=== PATIENT | female | born 1970 | race African-American/Black ===

== ENCOUNTER 2017-09-30 08:51 | Inpatient (IN) | payer MEDICAID ==
[2017-09-30] MEDS ORDERED: Sodium Chloride 0.9% 10 ML Syringe FLUSH PRN (09:18)
[2017-09-30] MEDS ORDERED: Sodium Chloride 0.9% 2.5 ML Syringe FLUSH PRN (09:18)
--- NOTE | 2017-09-30 09:19 | EDM.PDOC ---
ED HPI GENERAL MEDICAL PROBLEM - General Chief Complaint: Respiratory Problem Stated Complaint: COUGH,ABDOMINAL PAIN Time Seen by Provider: 09/30/17 09:10 Source of Information: Reports: Patient History Limitations: Reports: No Limitations - History of Present Illness INITIAL COMMENTS - FREE TEXT/NARRATIVE: History of present illness: []Patient has been coughing for one week with lengths of chest pain and feeling dizzy. She had a fever that subsided 3 days ago continues to have the chest pain and cough. Any leg swelling or history of cardiac disease. She arrived to the ED hypertensive 180s/130s states she does have hypertension but is untreated. Time she saw a physician was in [place] in 2016 and does not take any regular medicines. Review of systems: As per history of present illness and below otherwise all systems reviewed and negative. Past medical history: As per history of present illness and as reviewed below otherwise noncontributory. Surgical history: As per history of present illness and as reviewed below otherwise noncontributory. Social history: No reported history of drug or alcohol abuse. Family history: As per history of present illness and as reviewed below otherwise noncontributory. Physical exam: General: Well developed, well nourished in NAD HEENT: Atraumatic, normocephalic, pupils reactive, negative for conjunctival pallor or scleral icterus, mucous membranes moist, throat clear, neck supple, nontender, trachea midline. Lungs: Clear to auscultation, breath sounds equal bilaterally, chest nontender. Heart: S1S2, regular, negative for clicks, rubs, or JVD. Abdomen: Soft, nondistended, nontender. Negative for masses or hepatosplenomegaly. Negative for costovertebral tenderness. Pelvis: Stable nontender. Genitourinary: Deferred. Rectal: Deferred. Extremities: Atraumatic, negative for cords or calf pain. Neurovascular unremarkable. Neuro: Awake, alert, oriented. Cranial nerves II through XII unremarkable. Cerebellum unremarkable. Motor and sensory unremarkable throughout. Exam nonfocal. Diagnostics: []EKG shows left bundle-branch no acute ischemia, chest x-ray shows congestion, curly B-lines, CBC is normal, chemistries show elevated creatinine 1.2, BNP elevated at 984, LFTs show elevated alkaline phosphatase and bilirubin with mild elevation in AST and elevated ALT. Ultrasound gallbladder ordered showing that the gallbladder has been removed (patient denied having gallbladder surgery ) common bile duct is 5 mm. Therapeutics: []Patient was given aspirin and metoprolol while in the ED with improvement of blood pressure, however patient remains symptomatic with dizziness Impression: []CHF, uncontrolled hypertension, Plan: []Consulted Dr. De Luna for admission he accepts patient for telemetry observation Definitive disposition and diagnosis as appropriate pending reevaluation and review of above. Mid-Anterior Chest Pain Score (Numeric/FACES): 10 - Related Data Allergies Allergy/AdvReac Type Severity Reaction Status Date / Time No Known Allergies Allergy Verified 09/30/17 09:08 Home Meds: Home Meds . [No Known Home Meds] 09/30/17 [History] ED ROS GENERAL - Review of Systems Review Of Systems: See Below (See history of present illness) ED EXAM, GENERAL - Physical Exam Exam: See Below (See history of present illness) Course - Vital Signs Last Recorded V/S: Last Vital Signs Temp 97.9 F 09/30/17 09:03 Pulse 84 09/30/17 11:34 Resp 20 09/30/17 11:34 BP 148/108 H 09/30/17 12:17 Pulse Ox 95 09/30/17 11:34 - Orders/Labs/Meds Orders: Active Orders 24 hr Category Date Time Status EKG Documentation Completion [RC] STAT Care 09/30/17 09:17 Active Sodium Chloride 0.9% [Saline Flush] Med 09/30/17 09:18 Active 10 ml FLUSH ASDIRECTED PRN Sodium Chloride 0.9% [Saline Flush] Med 09/30/17 09:18 Active 2.5 ml FLUSH ASDIRECTED PRN Saline Lock Insert [OM.PC] Stat Oth 09/30/17 09:17 Ordered Medication Orders Docusate Sodium (Colace) 100 mg PO DAILY [facility] Last Admin: 09/30/17 12:19 Dose: 100 mg Enoxaparin Sodium (Lovenox) 40 mg SUBCUT Q24H PREM Last Admin: 09/30/17 12:19 Dose: 40 mg Morphine Sulfate (Morphine) 2 mg IVPUSH Q4H PRN PRN Reason: Pain Nitroglycerin (Nitrostat) 0.4 mg SL Q5M PRN PRN Reason: Chest Pain Last Admin: 09/30/17 12:17 Dose: 0.4 mg Ondansetron HCl (Zofran) 4 mg IVPUSH Q4H PRN PRN Reason: Nausea Pantoprazole Sodium (Protonix Iv) 40 mg IVPUSH Q24H PREM Sodium Chloride (Saline Flush) 10 ml FLUSH ASDIRECTED PRN PRN Reason: Keep Vein Open Sodium Chloride (Saline Flush) 2.5 ml FLUSH ASDIRECTED PRN PRN Reason: Keep Vein Open Labs: Laboratory Tests 09/30/17 09/30/17 09/30/17 Range/Units 09:35 09:35 09:35 WBC 7.63 (4.0-11.0) K/uL RBC 4.90 (4.30-5.90) M/uL Hgb 14.7 (12.0-16.0) g/dL Hct 43.5 (36.0-46.0) % MCV 88.8 (80.0-98.0) fL MCH 30.0 (27.0-32.0) pg MCHC 33.8 (31.0-37.0) g/dL RDW Std Deviation 46.7 (28.0-62.0) fl RDW Coeff of Anu 15 (11.0-15.0) % Plt Count 346 (150-400) K/uL MPV 10.10 (7.40-12.00) fL Neut % (Auto) 46.8 L (48.0-80.0) % Lymph % (Auto) 47.8 H (16.0-40.0) % [place] % (Auto) 4.3 (0.0-15.0) % Eos % (Auto) 0.8 (0.0-7.0) % Baso % (Auto) 0.3 (0.0-1.5) % Neut # (Auto) 3.6 (1.4-5.7) K/uL Lymph # (Auto) 3.7 H (0.6-2.4) K/uL [place] # (Auto) 0.3 (0.0-0.8) K/uL Eos # (Auto) 0.1 (0.0-0.7) K/uL Baso # (Auto) 0.0 (0.0-0.1) K/uL Nucleated RBC % 0.0 /100WBC Nucleated RBCs # 0 K/uL Sodium 142 (136-145) mmol/L Potassium 3.7 (3.5-5.1) mmol/L Chloride 107 (98-107) mmol/L Carbon Dioxide 22.3 (21.0-32.0) mmol/L BUN 18 (7.0-18.0) mg/dL Creatinine 1.2 H (0.6-1.0) mg/dL Est Cr Clr Drug Dosing 54.25 mL/min Estimated GFR (MDRD) 58.4 ml/min Glucose 134 H (74-106) mg/dL Calcium 9.3 (8.5-10.1) mg/dL Total Bilirubin 2.1 H (0.2-1.0) mg/dL AST 49 H (15-37) U/L ALT 124 H (14-63) U/L Alkaline Phosphatase 167 H (46-116) U/L Troponin I < 0.050 (0.000-0.056) ng/mL B-Natriuretic Peptide 984 H (<100) PG/ML Total Protein 7.9 (6.4-8.2) g/dL Albumin 3.6 (3.4-5.0) g/dL Globulin 4.3 H (2.0-3.5) g/dL Albumin/Globulin Ratio 0.8 L (1.3-2.8) Amylase (25-115) U/L Lipase (73-393) U/L 09/30/17 Range/Units 09:35 WBC (4.0-11.0) K/uL RBC (4.30-5.90) M/uL Hgb (12.0-16.0) g/dL Hct (36.0-46.0) % MCV (80.0-98.0) fL MCH (27.0-32.0) pg MCHC (31.0-37.0) g/dL RDW Std Deviation (28.0-62.0) fl RDW Coeff of Anu (11.0-15.0) % Plt Count (150-400) K/uL MPV (7.40-12.00) fL Neut % (Auto) (48.0-80.0) % Lymph % (Auto) (16.0-40.0) % [place] % (Auto) (0.0-15.0) % Eos % (Auto) (0.0-7.0) % Baso % (Auto) (0.0-1.5) % Neut # (Auto) (1.4-5.7) K/uL Lymph # (Auto) (0.6-2.4) K/uL [place] # (Auto) (0.0-0.8) K/uL Eos # (Auto) (0.0-0.7) K/uL Baso # (Auto) (0.0-0.1) K/uL Nucleated RBC % /100WBC Nucleated RBCs # K/uL Sodium (136-145) mmol/L Potassium (3.5-5.1) mmol/L Chloride (98-107) mmol/L Carbon Dioxide (21.0-32.0) mmol/L BUN (7.0-18.0) mg/dL Creatinine (0.6-1.0) mg/dL Est Cr Clr Drug Dosing mL/min Estimated GFR (MDRD) ml/min Glucose (74-106) mg/dL Calcium (8.5-10.1) mg/dL Total Bilirubin (0.2-1.0) mg/dL AST (15-37) U/L ALT (14-63) U/L Alkaline Phosphatase (46-116) U/L Troponin I (0.000-0.056) ng/mL B-Natriuretic Peptide (<100) PG/ML Total Protein (6.4-8.2) g/dL Albumin (3.4-5.0) g/dL Globulin (2.0-3.5) g/dL Albumin/Globulin Ratio (1.3-2.8) Amylase 38 (25-115) U/L Lipase 82 (73-393) U/L Meds: Medications Generic Name Dose Route Start Last Admin Trade Name Freq PRN Reason Stop Dose Admin Docusate Sodium 100 mg 09/30/17 12:00 09/30/17 12:19 Colace PO 100 mg DAILY PREM Administration Enoxaparin Sodium 40 mg 09/30/17 12:00 09/30/17 12:19 Lovenox SUBCUT 40 mg Q24H PREM Administration Morphine Sulfate 2 mg 09/30/17 12:23 Morphine IVPUSH Q4H PRN Pain Nitroglycerin 0.4 mg 09/30/17 12:07 09/30/17 12:17 Nitrostat SL 0.4 mg Q5M PRN Administration Chest Pain Ondansetron HCl 4 mg 09/30/17 11:53 Zofran IVPUSH Q4H PRN Nausea Pantoprazole Sodium 40 mg 09/30/17 12:30 Protonix Iv IVPUSH Q24H PREM Sodium Chloride 10 ml 09/30/17 09:18 Saline Flush FLUSH ASDIRECTED PRN Keep Vein Open Sodium Chloride 2.5 ml 09/30/17 09:18 Saline Flush FLUSH ASDIRECTED PRN Keep Vein Open Discontinued Medications Generic Name Dose Route Start Last Admin Trade Name Freq PRN Reason Stop Dose Admin Aspirin 324 mg 09/30/17 10:57 09/30/17 11:01 Aspirin PO 09/30/17 10:58 324 mg ONETIME ONE Administration Furosemide 40 mg 09/30/17 11:58 09/30/17 12:19 Lasix IVPUSH 09/30/17 11:59 40 mg NOW ONE Administration Metoprolol Tartrate 5 mg 09/30/17 09:30 09/30/17 10:19 Lopressor IVPUSH 09/30/17 09:41 5 mg Q5M PREM Administration Departure - Departure Time of Disposition: 12:32 Disposition: Admitted As Inpatient 66 Condition: Fair Clinical Impression: Uncontrolled hypertension, Elevated liver function tests Congestive heart failure Qualifiers: Heart failure type: unspecified Heart failure chronicity: unspecified Qualified Code(s): I50.9 - Heart failure, unspecified - Discharge Information - My Orders Last 24 Hours: My Active Orders 09/30/17 09:17 EKG Documentation Completion [RC] STAT Saline Lock Insert [OM.PC] Stat 09/30/17 09:18 Sodium Chloride 0.9% [Saline Flush] 10 ml FLUSH ASDIRECTED PRN Sodium Chloride 0.9% [Saline Flush] 2.5 ml FLUSH ASDIRECTED PRN - Assessment/Plan Last 24 Hours: My Active Orders 09/30/17 09:17 EKG Documentation Completion [RC] STAT Saline Lock Insert [OM.PC] Stat 09/30/17 09:18 Sodium Chloride 0.9% [Saline Flush] 10 ml FLUSH ASDIRECTED PRN Sodium Chloride 0.9% [Saline Flush] 2.5 ml FLUSH ASDIRECTED PRN
[2017-09-30] MEDS: Metoprolol Tartrate 5 MG/5 ML SDV IVPUSH SCH ×3 (09:27→10:19)
[2017-09-30 10:18] LABS: CHLORIDE,CL 107 mmol/L (98-107); SODIUM,NA 142 mmol/L (136-145)
--- NOTE | 2017-09-30 10:23 | CR ---
EXAMINATION: Two-view chest (PA and Lateral views). HISTORY: Shortness of breath. FINDINGS: The trachea is midline. The cardiomediastinal silhouette is within normal limits. The heart is enlarg ed. Mild bibasilar interstitial prominence and atelectasis. Possible curly B lines within the right l suellen base. No pleural effusion or pneumothorax. Osseous structures appear unremarkable. IMPRESSION: Mild cardiomegaly with possible curly B lines which may suggest pulmonary edema.
[2017-09-30] MEDS ORDERED: Aspirin 81 MG Tab.Chew PO ONE (10:57)
--- NOTE | 2017-09-30 11:51 | US ---
EXAMINATION: Right upper quadrant ultrasound HISTORY: Elevated alkaline phosphatase COMPARISON: None TECHNIQUE: Grayscale and color Doppler imaging obtained of the right upper quadrant. FINDINGS: The visualized pancreas appears normal. The liver is normal in contour and echotexture with out a focal hepatic mass. The gallbladder is visualized likely status post cholecystectomy. The right kidney measures at least 12.7 cm [id number] without evidence of hydronephrosis. Common bile duct m easures 5 mm. Small right pleural effusion. IMPRESSION: 1. No acute findings within the right upper quadrant. 2. Small right pleural effusion noted, not well characterized on the chest radiograph.
[2017-09-30] MEDS ORDERED: Ondansetron 4 MG/2 ML SDV IVPUSH PRN (11:53)
[2017-09-30] MEDS ORDERED: Furosemide 40 MG/4 ML VIAL IVPUSH ONE ×3 (11:58→18:00)
[2017-09-30] MEDS ORDERED: Nitroglycerin 0.4 MG Tab.SL SL PRN (12:07)
--- NOTE | 2017-09-30 12:07 | PCM.HP ---
H&P History of Present Illness - General Date of Service: 09/30/17 Admit Problem/Dx: Admission Diagnosis/Problem Admission Diagnosis/Problem Congestive heart failure Source of Information: Patient History Limitations: Reports: No Limitations - History of Present Illness Initial Comments - Free Text/Narative: This 47 year old female with pmh of HTN and dyslipidemia, which she is noncomplaint with medications, presented to the ED today with concerns of feeling left sided chest pain and dizziness. She reports this has been going on for about 1 week and felt she should be evaluated since it was not going away. She reports hot flashes and fevers, but no documented fever at home. No cough, palpitations or URI symptoms. She reports some nausea with epigastric pain and bloating, she reports history of GERD, but hasn't been taking Nexium in a long time. She reports no BM since Thursday. Abdomen feels full of gas, she is passing gas. No black or bloody BMs. She reports lying flat but then having to breath heavier and sit up. No noticeable weight loss or gain, "my weight fluctuates". She reports history of smoking, quit 2 weeks ago, no alcohol use and no recreational drug use. No heavy Tylenol use. In the ED, WBC 7,630, BUN 18, Cr 1.2, glucose 134, bilirubin 2.1, AST 49, ALT 124, and alkphose 167. amylase 38 and lipase 82. BNP 984 and troponin negative. EKG revealed LBBB, rate 90s. CXR revealed mild cardiomegaly with possible curly B lines. RUQ US revealed no acute finding within RUQ, cholecystectomy, small R pleural effusion not clearly characterized on CXR. She was noted to have elevated BP on arrival 180/130s. 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 She was also given ASA 324 mg. She will be admitted for suspected CHF, chest pain and uncontrolled HTN/HTN urgency. She reports she has not seen a Dr since she was in [place] in 2016 and has not been taking her medications for a "long time". Mid-Anterior Chest Pain Score (Numeric/FACES): 10 - Related Data Allergies/Adverse Reactions: Allergies Allergy/AdvReac Type Severity Reaction Status Date / Time No Known Allergies Allergy Verified 03/07/18 09:08 Home Medications: Home Meds . [No Known Home Meds] 09/30/17 [History] Past Medical History Cardiovascular History: Reports: High Cholesterol, Hypertension. Denies: Afib, Blood Clots/VTE/DVT, Heart Failure, CO, Stents Respiratory History: Reports: None. Denies: Asthma, COPD, PE Gastrointestinal History: Reports: Cholelithiasis, GERD. Denies: GI Bleed [employer] History: Reports: Musculoskeletal History: Reports: None Neurological History: Reports: None. Denies: CVA, TIA Endocrine/Metabolic History: Reports: Obesity/BMI 30+. Denies: Diabetes, Type II - Past Surgical History GI Surgical History: Reports: Cholecystectomy Female Surgical History: Reports: Hysterectomy, Other (See Below) Other Female Surgeries/Procedures: ovarian cyst Social & Family History - Family History Cardiac: Reports: High Cholesterol, Hypertension - Tobacco Use Smoking Status *Q: Former Smoker Years of Tobacco use: 25 Packs/Tins Daily: 2 Used Tobacco, but Quit: Yes Month Tobacco Last Used: 08/2017 - Caffeine Use Caffeine Use: Reports: Coffee - Alcohol Use Alcohol Use History: No - Recreational Drug Use Recreational Drug Use: No H&P Review of Systems - Review of Systems: Review Of Systems: See Below General: Reports: Fever (a few days ago, but no temp actually checked. ). Denies: Fatigue HEENT: Reports: Vertigo. Denies: Headaches, Sinus Congestion, Sore Throat Pulmonary: Reports: Shortness of Breath. Denies: Wheezing, Cough, Sputum Cardiovascular: Reports: Chest Pain, Dyspnea on Exertion, Lightheadedness. Denies: Palpitations, Edema, Syncope Gastrointestinal: Reports: Abdominal Pain (epigastric), Constipation, Flatus, Nausea. Denies: Black Stool, Bloody Stool, Vomiting Genitourinary: Reports: No Symptoms. Denies: Dysuria, Frequency, Burning, Pain Musculoskeletal: Reports: No Symptoms. Denies: Neck Pain Psychiatric: Reports: No Symptoms. Denies: Confusion Neurological: Reports: No Symptoms. Denies: Confusion Hematologic/Lymphatic: Reports: No Symptoms Immunologic: Reports: No Symptoms Exam - Exam Exam: See Below - Vital Signs Vital Signs: Last Vital Signs Temp 97.9 F 09/30/17 09:03 Pulse 84 09/30/17 11:34 Resp 20 09/30/17 11:34 BP 148/111 H 03/07/18 11:34 Pulse Ox 95 09/30/17 11:34 Weight: 87.6 kg - Exam General: Alert, Oriented, Cooperative, Other (apperas slightly over dramatic at times. ) HEENT: Conjunctiva Clear, Mucosa Moist & [place], Posterior Pharynx Clear, Pupils Equal Neck: Supple, Trachea Midline. No: JVD Lungs: Clear to Auscultation, Normal Respiratory Effort Cardiovascular: Regular Rate, Regular Rhythm, Normal S1, Normal S2 GI/Abdominal Exam: Normal Bowel Sounds, Soft, No Organomegaly, No Distention, No Abnormal Bruit, No Mass, Pelvis Stable, Tender (epigastric region) Back Exam: Normal Inspection, Full Range of Motion, NT Extremities: Normal Inspection, Normal Range of Motion, Non-Tender, No Pedal Edema, Normal Capillary Refill Neuro Extensive - Mental Status: Alert, Oriented x3, Normal Mood/Affect, Normal Cognition Neuro Extensive - Motor, Sensory, Reflexes: CN II-XII Intact Psychiatric: Alert, Normal Affect, Normal Mood - Patient Data Result Diagrams: 09/30/17 09:35 09/30/17 09:35 EKG INTERPRETATION EKG Date: 09/30/17 Rhythm: NSR P-Wave: Present QRS: LBBB ST-T: Normal QT: Normal Comparison: NA - No Prior EKG *Q Meaningful Use (ADM) - VTE *Q VTE Criteria *Q: - Stroke *Q Stroke Criteria *Q: - AMI *Q AMI Criteria *Q: - Problem List (1) Chest pain SNOMED Code(s): 52559816 ICD Code: R07.9 - CHEST PAIN, UNSPECIFIED Status: Acute Current Visit: Yes (2) Congestive heart failure SNOMED Code(s): 14582734 ICD Code: I50.9 - HEART FAILURE, UNSPECIFIED Status: Suspected Current Visit: Yes Qualifiers: Heart failure type: unspecified Heart failure chronicity: acute Qualified Code(s): I50.9 - Heart failure, unspecified (3) Hyperlipidemia SNOMED Code(s): 41109553 ICD Code: E78.5 - HYPERLIPIDEMIA, UNSPECIFIED Status: Chronic Current Visit: Yes Qualifiers: Hyperlipidemia type: unspecified Qualified Code(s): E78.5 - Hyperlipidemia , unspecified (4) Non compliance w medication regimen SNOMED Code(s): 657241514 ICD Code: Z91.14 - PATIENT'S OTHER NONCOMPLIANCE WITH MEDICATION REGIMEN Status: Acute Current Visit: Yes (5) Elevated liver function tests SNOMED Code(s): 494596921 ICD Code: R79.89 - OTHER SPECIFIED ABNORMAL FINDINGS OF BLOOD CHEMISTRY Status: Acute Current Visit: Yes (6) Uncontrolled hypertension SNOMED Code(s): 77347257 ICD Code: I10 - ESSENTIAL (PRIMARY) HYPERTENSION Status: Chronic Current Visit: Yes Problem List Initiated/Reviewed/Updated: Yes Orders Last 24hrs: Active Orders 24 hr Category Date Time Status Patient Status [ADT] Routine ADT 09/30/17 11:53 Active Height and Weight [RC] DAILY Care 09/30/17 11:53 Active Intake and Output Strict [RC] Q12H Care 09/30/17 16:00 Ordered Oxygen Therapy [RC] PRN Care 09/30/17 11:53 Active Up ad [place] [RC] ASDIRECTED Care 09/30/17 11:53 Active VTE/DVT Education [RC] PER UNIT ROUTINE Care 09/30/17 11:53 Active Vital Signs [RC] Q4H Care 09/30/17 11:53 Active Heart Healthy Diet [DIET] Diet 09/30/17 Lunch Active Echo 2D wo Cont [US] Urgent Exams 09/30/17 11:53 Ordered CBC WITH AUTO DIFF [HEME] AM Lab 10/01/17 05:11 Ordered CBC WITH AUTO DIFF [HEME] AM Lab 10/02/17 05:11 Ordered CBC WITH AUTO DIFF [HEME] AM Lab 10/03/17 05:11 Ordered COMPREHENSIVE METABOLIC PN,CMP [CHEM] AM Lab 10/01/17 05:11 Ordered COMPREHENSIVE METABOLIC PN,CMP [CHEM] AM Lab 10/02/17 05:11 Ordered COMPREHENSIVE METABOLIC PN,CMP [CHEM] AM Lab 10/03/17 05:11 Ordered HEPATITIS PANEL, ACUTE [REF] Routine Lab 09/30/17 12:04 Ordered MAGNESIUM [CHEM] AM Lab 10/01/17 05:11 Ordered MAGNESIUM [CHEM] AM Lab 10/02/17 05:11 Ordered MAGNESIUM [CHEM] AM Lab 10/03/17 05:11 Ordered Docusate Sodium [Colace] Med 09/30/17 12:00 Active 100 mg PO DAILY Enoxaparin [Lovenox] Med 09/30/17 12:00 Active 40 mg SUBCUT Q24H Ondansetron [Zofran] Med 09/30/17 11:53 Active 4 mg IVPUSH Q4H PRN Resuscitation Status Routine Resus Stat 09/30/17 11:53 Ordered Medication Orders Docusate Sodium (Colace) 100 mg PO DAILY PREM Enoxaparin Sodium (Lovenox) 40 mg SUBCUT Q24H PREM Ondansetron HCl (Zofran) 4 mg IVPUSH Q4H PRN PRN Reason: Nausea Sodium Chloride (Saline Flush) 10 ml FLUSH ASDIRECTED PRN PRN Reason: Keep Vein Open Sodium Chloride (Saline Flush) 2.5 ml FLUSH ASDIRECTED PRN PRN Reason: Keep Vein Open Assessment/Plan Comment:: This 47 year old female admitted with suspected CHF, uncontrolled HTN, and chest pain 1. suspected CHF: Patient denies history of CHF. Will obtain ECHO to further evaluate LV EF. Will administer Lasix and monitor strict I/O and daily weights. LBBB noted on EKG, unsure if ths is new or old. Will consult Dr Shore, cardiology Spoke with Dr Fu after he visited with patient, will give another dose of Lasix this evening. Along with starting Lisinopril 2.5 mg now and Aldactone 12.5 mg. 2. Chest pain: Monitor on telemetry. Trend troponins. check A1c and lipid panel. Given Nitro SL x1 on Med/surg with some relief. Pain with palpation mid sternum. May be GERD. will also give some Protonix IV. 3. HTN: Uncontrolled. HTN urgency. Monitor with Lasix. Start Lisinopril 2.5 mg this evening. 4. Elevated LFTs: denies history of. Has hx of gallstones with cholecystectomy, but no problems since. RUQ US negative. Common bile duct 5 mm. Will monitor. Hepatitis panel pending. VTE prophylaxis: Lovenox. Dispo: 2-3 days pending improvement and workup
[2017-09-30] MEDS: Docusate Sodium 100 MG Cap PO SCH (12:19)
[2017-09-30] MEDS: Enoxaparin 40 MG/0.4 ML Syringe SUBCUT SCH (12:19)
[2017-09-30] MEDS: Pantoprazole 40 MG Vial IVPUSH SCH (12:40)
[2017-09-30] MEDS: Morphine 2 MG/ML Syringe IVPUSH PRN (14:19)
[2017-09-30] MEDS ORDERED: Bisacodyl 10 MG Supp RECTAL PRN (16:28)
[2017-09-30] MEDS: Lisinopril 5 MG Tab PO SCH (16:50)
[2017-09-30] MEDS: Spironolactone 25 MG Tab PO SCH (16:51)
[2017-10-01] MEDS ORDERED: Potassium Chloride 20 MEQ Tab.ER PO ONE (08:00)
[2017-10-01] MEDS ORDERED: Magnesium Sulfate/Water 4 GM in Premix Bag 1 BAG IV ONE (08:00)
--- NOTE | 2017-10-01 08:03 | PCM.PN ---
- General Info Date of Service: 10/01/17 Admission Dx/Problem (Free Text): Admission Diagnosis/Problem Admission Diagnosis/Problem Congestive heart failure Subjective Update: Feeling much better this morning. No further chest pain or cough. Reports she is nearly back to normal feeling again. Took a shower this morning. Dyspnea is better as well. No further abdominal pain. Functional Status: Reports: Pain Controlled, Tolerating Diet, Ambulating, Urinating - Review of Systems HEENT: Reports: No Symptoms. Denies: Headaches, Sore Throat, Visual Changes Pulmonary: Reports: No Symptoms. Denies: Shortness of Breath, Cough Cardiovascular: Reports: Dyspnea on Exertion (intermittent, but much improved. ) . Denies: Chest Pain, Palpitations, Edema Gastrointestinal: Reports: No Symptoms. Denies: Abdominal Pain, Nausea, Vomiting Genitourinary: Reports: No Symptoms. Denies: Dysuria, Frequency, Burning, Pain Musculoskeletal: Reports: No Symptoms Neurological: Reports: No Symptoms. Denies: Confusion Psychiatric: Reports: No Symptoms. Denies: Confusion - Patient Data Vitals - Most Recent: Last Vital Signs Temp 98.2 F 10/01/17 07:27 Pulse 86 10/01/17 07:27 Resp 16 10/01/17 07:27 BP 144/92 H 10/01/17 07:27 Pulse Ox 94 L 10/01/17 07:27 Weight - Most Recent: 88 kg I&O - Last 24 Hours: Intake & Output 09/30/17 10/01/17 10/01/17 22:59 06:59 14:59 Intake Total 250 600 Output Total 800 2200 Balance -550 -1600 Lab Results Last 24 Hours: Laboratory Results - last 24 hr 09/30/17 09/30/17 10/01/17 Range/Units 16:14 21:29 04:53 WBC 7.22 (4.0-11.0) K/uL RBC 4.58 (4.30-5.90) M/uL Hgb 13.8 (12.0-16.0) g/dL Hct 40.7 (36.0-46.0) % MCV 88.9 (80.0-98.0) fL MCH 30.1 (27.0-32.0) pg MCHC 33.9 (31.0-37.0) g/dL RDW Std Deviation 46.4 (28.0-62.0) fl RDW Coeff of Anu 15 (11.0-15.0) % Plt Count 321 (150-400) K/uL MPV 10.20 (7.40-12.00) fL Neut % (Auto) 44.6 L (48.0-80.0) % Lymph % (Auto) 48.2 H (16.0-40.0) % Gilchrist % (Auto) 6.0 (0.0-15.0) % Eos % (Auto) 1.1 (0.0-7.0) % Baso % (Auto) 0.1 (0.0-1.5) % Neut # (Auto) 3.2 (1.4-5.7) K/uL Lymph # (Auto) 3.5 H (0.6-2.4) K/uL Gilchrist # (Auto) 0.4 (0.0-0.8) K/uL Eos # (Auto) 0.1 (0.0-0.7) K/uL Baso # (Auto) 0.0 (0.0-0.1) K/uL Nucleated RBC % 0.0 /100WBC Nucleated RBCs # 0 K/uL Sodium (136-145) mmol/L Potassium (3.5-5.1) mmol/L Chloride (98-107) mmol/L Carbon Dioxide (21.0-32.0) mmol/L BUN (7.0-18.0) mg/dL Creatinine (0.6-1.0) mg/dL Est Cr Clr Drug Dosing mL/min Estimated GFR (MDRD) ml/min Glucose (74-106) mg/dL Hemoglobin A1c (4.5-6.2) % Calcium (8.5-10.1) mg/dL Magnesium (1.5-2.0) mg/dL Total Bilirubin (0.2-1.0) mg/dL AST (15-37) IU/L ALT (14-63) IU/L Alkaline Phosphatase (46-116) U/L Troponin I < 0.050 < 0.050 (0.000-0.056) ng/mL Total Protein (6.4-8.2) g/dL Albumin (3.4-5.0) g/dL Globulin (2.0-3.5) g/dL Albumin/Globulin Ratio (1.3-2.8) Triglycerides (0-200) mg/dL Cholesterol (50-200) mg/dL LDL Cholesterol, Calc (60-180) mg/dL VLDL Cholesterol (5-55) mg/dL HDL Cholesterol (40-60) mg/dL Cholesterol/HDL Ratio (3.3-6.0) 10/01/17 10/01/17 Range/Units 04:53 04:53 WBC (4.0-11.0) K/uL RBC (4.30-5.90) M/uL Hgb (12.0-16.0) g/dL Hct (36.0-46.0) % MCV (80.0-98.0) fL MCH (27.0-32.0) pg MCHC (31.0-37.0) g/dL RDW Std Deviation (28.0-62.0) fl RDW Coeff of Anu (11.0-15.0) % Plt Count (150-400) K/uL MPV (7.40-12.00) fL Neut % (Auto) (48.0-80.0) % Lymph % (Auto) (16.0-40.0) % Gilchrist % (Auto) (0.0-15.0) % Eos % (Auto) (0.0-7.0) % Baso % (Auto) (0.0-1.5) % Neut # (Auto) (1.4-5.7) K/uL Lymph # (Auto) (0.6-2.4) K/uL Gilchrist # (Auto) (0.0-0.8) K/uL Eos # (Auto) (0.0-0.7) K/uL Baso # (Auto) (0.0-0.1) K/uL Nucleated RBC % /100WBC Nucleated RBCs # K/uL Sodium 144 (136-145) mmol/L Potassium 3.3 L (3.5-5.1) mmol/L Chloride 106 (98-107) mmol/L Carbon Dioxide 28.0 (21.0-32.0) mmol/L BUN 20 H (7.0-18.0) mg/dL Creatinine 1.2 H (0.6-1.0) mg/dL Est Cr Clr Drug Dosing 55.31 mL/min Estimated GFR (MDRD) 58.4 ml/min Glucose 84 (74-106) mg/dL Hemoglobin A1c 5.9 (4.5-6.2) % Calcium 8.9 (8.5-10.1) mg/dL Magnesium 1.3 L (1.5-2.0) mg/dL Total Bilirubin 1.8 H (0.2-1.0) mg/dL AST 29 (15-37) IU/L ALT 92 H (14-63) IU/L Alkaline Phosphatase 143 H (46-116) U/L Troponin I (0.000-0.056) ng/mL Total Protein 6.7 (6.4-8.2) g/dL Albumin 3.2 L (3.4-5.0) g/dL Globulin 3.5 (2.0-3.5) g/dL Albumin/Globulin Ratio 0.9 L (1.3-2.8) Triglycerides 120 (0-200) mg/dL Cholesterol 164 (50-200) mg/dL LDL Cholesterol, Calc 122 (60-180) mg/dL VLDL Cholesterol 24 (5-55) mg/dL HDL Cholesterol 18 L (40-60) mg/dL Cholesterol/HDL Ratio 9.1 H (3.3-6.0) Reynaldo Results Last 24 Hours: Microbiology 09/30/17 12:30 Influenza Type A Antigen Screen - Final Nasopharyngeal Swab NEGATIVE INFLUENZA A VIRUS AG Influenza Type B Antigen Screen - Final NEGATIVE INFLUENZA B VIRUS AG Med Orders - Current: Current Medications Aspirin (Aspirin) 81 mg PO DAILY [facility] Bisacodyl (Dulcolax) 10 mg RECTAL DAILY PRN PRN Reason: Constipation Last Admin: 09/30/17 16:57 Dose: 10 mg Docusate Sodium (Colace) 100 mg PO DAILY [facility] Last Admin: 09/30/17 12:19 Dose: 100 mg Enoxaparin Sodium (Lovenox) 40 mg SUBCUT Q24H [facility] Last Admin: 09/30/17 12:19 Dose: 40 mg Magnesium Sulfate 4 gm/ Premix 100 mls @ 50 mls/hr IV ONETIME ONE Stop: 10/01/17 09:59 Lisinopril (Prinivil) 2.5 mg PO DAILY [facility] Last Admin: 09/30/17 16:50 Dose: 2.5 mg Morphine Sulfate (Morphine) 2 mg IVPUSH Q4H PRN PRN Reason: Pain Last Admin: 09/30/17 14:19 Dose: 2 mg Nitroglycerin (Nitrostat) 0.4 mg SL Q5M PRN PRN Reason: Chest Pain Last Admin: 09/30/17 12:17 Dose: 0.4 mg Ondansetron HCl (Zofran) 4 mg IVPUSH Q4H PRN PRN Reason: Nausea Pantoprazole Sodium (Protonix Iv) 40 mg IVPUSH Q24H [facility] Last Admin: 09/30/17 12:40 Dose: 40 mg Potassium Chloride (Klor-Con M20) 40 meq PO ONETIME ONE Stop: 10/01/17 08:01 Sodium Chloride (Saline Flush) 10 ml FLUSH ASDIRECTED PRN PRN Reason: Keep Vein Open Sodium Chloride (Saline Flush) 2.5 ml FLUSH ASDIRECTED PRN PRN Reason: Keep Vein Open Spironolactone (Aldactone) 12.5 mg PO DAILY [facility] Last Admin: 09/30/17 16:51 Dose: 12.5 mg Discontinued Medications Aspirin (Aspirin) 324 mg PO ONETIME ONE Stop: 09/30/17 10:58 Last Admin: 09/30/17 11:01 Dose: 324 mg Furosemide (Lasix) 40 mg IVPUSH NOW ONE Stop: 09/30/17 11:59 Last Admin: 09/30/17 12:19 Dose: 40 mg Furosemide (Lasix) 40 mg IVPUSH NOW ONE Stop: 09/30/17 16:28 Last Admin: 09/30/17 16:52 Dose: Not Given Furosemide (Lasix) 40 mg IVPUSH NOW ONE Stop: 09/30/17 18:01 Last Admin: 09/30/17 17:41 Dose: 40 mg Metoprolol Tartrate (Lopressor) 5 mg IVPUSH Q5M [facility] Stop: 09/30/17 09:41 Last Admin: 09/30/17 10:19 Dose: 5 mg - Exam General: Alert, Oriented, Cooperative, No Acute Distress Neck: Supple Lungs: Clear to Auscultation, Normal Respiratory Effort Cardiovascular: Regular Rate, Regular Rhythm GI/Abdominal Exam: Normal Bowel Sounds, Soft, Non-Tender, No Organomegaly, No Distention, No Abnormal Bruit, No Mass, Pelvis Stable Back Exam: Normal Inspection, Full Range of Motion Extremities: Normal Inspection, Normal Range of Motion, Non-Tender, No Pedal Edema, Normal Capillary Refill Neurological: No New Focal Deficit Psy/Mental Status: Alert, Normal Affect, Normal Mood - Problem List & Annotations (1) Chest pain SNOMED Code(s): 60071360 Code(s): R07.9 - CHEST PAIN, UNSPECIFIED Status: Acute Current Visit: Yes (2) Congestive heart failure SNOMED Code(s): 27566306 Code(s): I50.9 - HEART FAILURE, UNSPECIFIED Status: Suspected Current Visit: Yes Qualifiers: Heart failure type: unspecified Heart failure chronicity: acute Qualified Code(s): I50.9 - Heart failure, unspecified (3) Hyperlipidemia SNOMED Code(s): 03586492 Code(s): E78.5 - HYPERLIPIDEMIA, UNSPECIFIED Status: Chronic Current Visit: Yes Qualifiers: Hyperlipidemia type: unspecified Qualified Code(s): E78.5 - Hyperlipidemia , unspecified (4) Non compliance w medication regimen SNOMED Code(s): 658768735 Code(s): Z91.14 - PATIENT'S OTHER NONCOMPLIANCE WITH MEDICATION REGIMEN Status: Acute Current Visit: Yes (5) Elevated liver function tests SNOMED Code(s): 185350302 Code(s): R79.89 - OTHER SPECIFIED ABNORMAL FINDINGS OF BLOOD CHEMISTRY Status: Acute Current Visit: Yes (6) Uncontrolled hypertension SNOMED Code(s): 37058900 Code(s): I10 - ESSENTIAL (PRIMARY) HYPERTENSION Status: Chronic Current Visit: Yes - Problem List Review Problem List Initiated/Reviewed/Updated: Yes - My Orders Last 24 Hours: My Active Orders 09/30/17 09:35 HEPATITIS PANEL, ACUTE [REF] Routine 09/30/17 11:53 Patient Status [ADT] Routine Height and Weight [RC] DAILY Oxygen Therapy [RC] PRN Up ad [place] [RC] ASDIRECTED Vital Signs [RC] Q4H Echo Comp wo Cont [US] Urgent Ondansetron [Zofran] 4 mg IVPUSH Q4H PRN Resuscitation Status Routine 09/30/17 12:00 Docusate Sodium [Colace] 100 mg PO DAILY Enoxaparin [Lovenox] 40 mg SUBCUT Q24H 09/30/17 12:07 Nitroglycerin [Nitrostat] 0.4 mg SL Q5M PRN 09/30/17 12:20 Telemetry Monitoring [Cardiac Monitoring] [RC] Q8H 09/30/17 12:23 Morphine 2 mg IVPUSH Q4H PRN 09/30/17 12:30 Pantoprazole [ProTONIX IV] 40 mg IVPUSH Q24H 09/30/17 14:06 Consult to Physician [CONS] Routine 09/30/17 14:07 Notify Provider Consults [RC] ASDIRECTED 09/30/17 16:00 Intake and Output Strict [RC] Q12H 09/30/17 16:28 Bisacodyl [Dulcolax] 10 mg RECTAL DAILY PRN 09/30/17 16:30 Lisinopril [Prinivil] 2.5 mg PO DAILY Spironolactone [Aldactone] 12.5 mg PO DAILY 09/30/17 Lunch Heart Healthy Diet [DIET] 10/01/17 07:57 Communication Order [RC] ROUTINE 10/01/17 08:00 Magnesium Sulfate/Water [Magnesium Sulfate 4 GM in Water 100 ML] 4 gm Premix Bag 1 bag IV ONETIME Potassium Chloride [Klor-Con M20] 40 meq PO ONETIME ONE 10/01/17 09:00 Aspirin 81 mg PO DAILY 10/02/17 05:11 CBC WITH AUTO DIFF [HEME] AM COMPREHENSIVE METABOLIC PN,CMP [CHEM] AM MAGNESIUM [CHEM] AM 10/03/17 05:11 CBC WITH AUTO DIFF [HEME] AM COMPREHENSIVE METABOLIC PN,CMP [CHEM] AM MAGNESIUM [CHEM] AM - Plan Plan:: This 47 year old female admitted with suspected CHF, uncontrolled HTN, and chest pain 1. Decompensated Systolic HF: Unknown etiology. Will need further workup as outpatient with Cardiology. Dr. Shore will assist in setting up. ECHO final report reveals, LV EF 20-25%, severely decreased left ventricular systolic function, elevated mean left atrial pressure, mildly reduced right ventricular systolic function, right ventricular size is mildly enlarged, aortic and tricuspid valve structurally normal, mild mitral and tricuspid valve regurgitation, right ventricular systolic pressure is moderately elevated 51.6 mmHg, small circumferential pericardial effusion noted, NO evidence of cardiac tamponade, and severe biatrial dilation. Continue Lasix 40 mg IV this morning and monitor strict I/O and daily weights. Diuresed well with 40 mg IV BID yesterday, negative 2149. Dr Shore, cardiology, to continue to follow. Continue Lisinopril 2.5 mg now and Aldactone 12.5 mg. Supplement K and Mg today. Monitor in am. 2. Chest pain: Monitor on telemetry. Troponins negative, ACS ruled out. A1c 5.9 and lipid panel total cholesterol 164, LDL 122 HDL 18, Triglycerides 120. Again will need further cardiac workup as outpatient. ASCVD risk 10 year rish 11.9, will start Atorvastatin 40 mg at bedtime. Continue ASA daily. 3. HTN: Improving today. Will monitor. Continue Lisinopril 2.5 mg. 4. Elevated LFTs: Improving. No further pain, tolerating diet. May be related to heart failure. Has hx of gallstones with cholecystectomy, but no problems since. RUQ US negative. Common bile duct 5 mm. Will monitor. Hepatitis panel pending. VTE prophylaxis: Lovenox. Dispo: 2-3 days pending improvement and workup
--- NOTE | 2017-10-01 08:28 | CONS ---
DATE OF CONSULTATION: 09/30/2017 DATE OF : 1970 PRIMARY CARE PHYSICIAN: None PCP REASON FOR CONSULTATION: Heart failure and high blood pressure. HISTORY OF PRESENT ILLNESS: This is a 47-year-old female, who has a history of high blood pressure in the past, noncompliant, presented to the hospital at this time because of productive cough, being short of breath, and epigastric pain discomfort. She has been in her usual state of health until a week ago she started having fever, as well as coughing with production of yellow mucus. However, this morning when she woke up, she woke up with the heart racing and then epigastric discomfort. After she has excessive cough, and she described the pain as a discomfort in the epigastric area. No radiation. Recent heart racing. No sweating and with some nausea with vomiting as well, and then she decided to come the emergency room. In the emergency room; her blood pressure was 180/136, and then she got Lopressor 5 mg IV x3, and her blood pressure got down to 142/97 with a heart rate of 81. Because of elevated BNP at 900, she was given the Lasix 40 mg IV one time as well. Apparently she stated that she was diagnosed with high blood pressure one or two years ago, when she was in [place]. She did not remember what kind of medication or how high her blood pressure was. However, she stated that she still got the refills for her medications. The last time that she took it was last May. I am not sure about her compliance for the medication, but she has not seen any primary care doctor since she moved here 3 years ago. She has been perfectly fine. She lives in apartment with her son. She lives on the 3rd floor, and she has to walk upstairs to the 3rd floor. She did not have any problem with chest pain with shortness of breath until a week ago, when she came in. She is disabled because of the foot surgery, and she is not working currently. She used to be a heavy smoker of 2 packs per day; however, she stopped it 2 weeks ago because she could not afford these cigarettes. She denied drinking, denied history of heart attack, heart failure, stressors. Denied drug use in the past. ALLERGIES: She has no known drug allergies. PAST MEDICAL HISTORY: Including hypertension. FAMILY HISTORY: Her father had a history of heart disease, but she was not certain what kind of heart disease that he had. Otherwise is negative for CAD, arrhythmia, or heart failure. SOCIAL HISTORY: Two pack per day for 20 years. Stopped 2 weeks ago. Alcohol,denied alcohol consumption. No drug use. REVIEW OF SYSTEMS: She denies leg swelling. Denied dizziness, passing out. She has some heart racing with the epigastric discomfort over the past week. Otherwise has been negative. PHYSICAL EXAMINATION: VITAL SIGNS: Initial blood pressure was 180/130 and improving to 140/90, heart rate was 107 and currently is 81, O2 saturation is 98% on 2 L, respirations 18 to 19, and temperature 36.2. HEENT: Not pale. No jaundice. NECK: Mild JVD. HEART: Normal S1, S2. No murmur. LUNGS: Crackles bilaterally. ABDOMEN: Soft, nontender. Bowel sounds present. No hepatosplenomegaly. EXTREMITIES: Legs, no edema. EKG shows left bundle-branch block pattern, heart rate of 93, CO interval 153, QRS duration 147. No prior EKG to compare. An echocardiogram preliminary report shows LV systolic dysfunction, ejection fraction possibly 20% with restrictive diastolic dysfunction and no evidence of RV collapse or RA collapse during the diastole phase with a circumferential pericardial effusion, mild to moderate. Mild to moderate TR and mild MR. ASSESSMENT AND PLAN: This is a 47-year-old female with history of severe hypertension, noncompliant, history of smoking with new onset cardiomyopathy, circumferential pericardial effusion, decompensated heart failure. Recommended to continue Lasix 40 mg IV and then start her on lisinopril 2.5, as well as Aldactone 12.5. Strict I's and O's. We will recommend outpatient ischemic workup, possibly cardiac catheterization, angiogram and the etiology is still unclear. It may be related to a viral cardiomyopathy versus ischemic heart disease, given the risk factors of hypertension and smoking for CAD. Will cycle cardiac enzyme to rule ACS. She should be on heart healthy diet. DARY JUAREZ /[id number] DEX
[2017-10-01] MEDS ORDERED: Furosemide 40 MG/4 ML VIAL IVPUSH ONE ×2 (08:57→09:35)
[2017-10-01] MEDS: Docusate Sodium 100 MG Cap PO SCH (09:08)
[2017-10-01] MEDS: Aspirin 81 MG Tab.Chew PO SCH (09:08)
[2017-10-01] MEDS: Lisinopril 5 MG Tab PO SCH (09:08)
[2017-10-01] MEDS: Spironolactone 25 MG Tab PO SCH (09:09)
[2017-10-01] MEDS ORDERED: Lisinopril 10 MG Tab PO ONE (12:07)
[2017-10-01] MEDS: Pantoprazole 40 MG Vial IVPUSH SCH (12:07)
[2017-10-01] MEDS: Enoxaparin 40 MG/0.4 ML Syringe SUBCUT SCH (12:08)
[2017-10-01] MEDS ORDERED: Metoprolol Tartrate 25 MG Tab PO ONE (13:26)
--- NOTE | 2017-10-01 18:36 | PCM.PN ---
- General Info Admission Dx/Problem (Free Text): Admission Diagnosis/Problem 47F uncontrolled HTN noncompliant with new onset systolic HF, decompensation. Subjective Update: felt better walked aroun d the hallway 2 rounds, no symptoms. No coughing no fever. Functional Status: Reports: Pain Controlled - Review of Systems General: Reports: No Symptoms HEENT: Reports: No Symptoms Pulmonary: Reports: No Symptoms Cardiovascular: Reports: No Symptoms Gastrointestinal: Reports: No Symptoms, Nausea Genitourinary: Reports: No Symptoms Musculoskeletal: Reports: No Symptoms - Patient Data Vitals - Most Recent: Last Vital Signs Temp 36.1 C 10/01/17 16:00 Pulse 87 10/01/17 16:00 Resp 18 10/01/17 16:00 BP 126/88 10/01/17 16:00 Pulse Ox 93 L 10/01/17 16:00 Weight - Most Recent: 88 kg I&O - Last 24 Hours: Intake & Output 10/01/17 10/01/17 10/01/17 06:59 14:59 22:59 Intake Total 427 288 9068 Output Total 2200 1890 Balance -1600 100 -120 Lab Results Last 24 Hours: Laboratory Results - last 24 hr 09/30/17 10/01/17 10/01/17 Range/Units 21:29 04:53 04:53 WBC 7.22 (4.0-11.0) K/uL RBC 4.58 (4.30-5.90) M/uL Hgb 13.8 (12.0-16.0) g/dL Hct 40.7 (36.0-46.0) % MCV 88.9 (80.0-98.0) fL MCH 30.1 (27.0-32.0) pg MCHC 33.9 (31.0-37.0) g/dL RDW Std Deviation 46.4 (28.0-62.0) fl RDW Coeff of Anu 15 (11.0-15.0) % Plt Count 321 (150-400) K/uL MPV 10.20 (7.40-12.00) fL Neut % (Auto) 44.6 L (48.0-80.0) % Lymph % (Auto) 48.2 H (16.0-40.0) % [place] % (Auto) 6.0 (0.0-15.0) % Eos % (Auto) 1.1 (0.0-7.0) % Baso % (Auto) 0.1 (0.0-1.5) % Neut # (Auto) 3.2 (1.4-5.7) K/uL Lymph # (Auto) 3.5 H (0.6-2.4) K/uL [place] # (Auto) 0.4 (0.0-0.8) K/uL Eos # (Auto) 0.1 (0.0-0.7) K/uL Baso # (Auto) 0.0 (0.0-0.1) K/uL Nucleated RBC % 0.0 /100WBC Nucleated RBCs # 0 K/uL Sodium 144 (136-145) mmol/L Potassium 3.3 L (3.5-5.1) mmol/L Chloride 106 (98-107) mmol/L Carbon Dioxide 28.0 (21.0-32.0) mmol/L BUN 20 H (7.0-18.0) mg/dL Creatinine 1.2 H (0.6-1.0) mg/dL Est Cr Clr Drug Dosing 55.31 mL/min Estimated GFR (MDRD) 58.4 ml/min Glucose 84 (74-106) mg/dL Hemoglobin A1c (4.5-6.2) % Calcium 8.9 (8.5-10.1) mg/dL Magnesium 1.3 L (1.5-2.0) mg/dL Total Bilirubin 1.8 H (0.2-1.0) mg/dL AST 29 (15-37) IU/L ALT 92 H (14-63) IU/L Alkaline Phosphatase 143 H (46-116) U/L Troponin I < 0.050 (0.000-0.056) ng/mL Total Protein 6.7 (6.4-8.2) g/dL Albumin 3.2 L (3.4-5.0) g/dL Globulin 3.5 (2.0-3.5) g/dL Albumin/Globulin Ratio 0.9 L (1.3-2.8) Triglycerides 120 (0-200) mg/dL Cholesterol 164 (50-200) mg/dL LDL Cholesterol, Calc 122 (60-180) mg/dL VLDL Cholesterol 24 (5-55) mg/dL HDL Cholesterol 18 L (40-60) mg/dL Cholesterol/HDL Ratio 9.1 H (3.3-6.0) 10/01/17 Range/Units 04:53 WBC (4.0-11.0) K/uL RBC (4.30-5.90) M/uL Hgb (12.0-16.0) g/dL Hct (36.0-46.0) % MCV (80.0-98.0) fL MCH (27.0-32.0) pg MCHC (31.0-37.0) g/dL RDW Std Deviation (28.0-62.0) fl RDW Coeff of Anu (11.0-15.0) % Plt Count (150-400) K/uL MPV (7.40-12.00) fL Neut % (Auto) (48.0-80.0) % Lymph % (Auto) (16.0-40.0) % [place] % (Auto) (0.0-15.0) % Eos % (Auto) (0.0-7.0) % Baso % (Auto) (0.0-1.5) % Neut # (Auto) (1.4-5.7) K/uL Lymph # (Auto) (0.6-2.4) K/uL [place] # (Auto) (0.0-0.8) K/uL Eos # (Auto) (0.0-0.7) K/uL Baso # (Auto) (0.0-0.1) K/uL Nucleated RBC % /100WBC Nucleated RBCs # K/uL Sodium (136-145) mmol/L Potassium (3.5-5.1) mmol/L Chloride (98-107) mmol/L Carbon Dioxide (21.0-32.0) mmol/L BUN (7.0-18.0) mg/dL Creatinine (0.6-1.0) mg/dL Est Cr Clr Drug Dosing mL/min Estimated GFR (MDRD) ml/min Glucose (74-106) mg/dL Hemoglobin A1c 5.9 (4.5-6.2) % Calcium (8.5-10.1) mg/dL Magnesium (1.5-2.0) mg/dL Total Bilirubin (0.2-1.0) mg/dL AST (15-37) IU/L ALT (14-63) IU/L Alkaline Phosphatase (46-116) U/L Troponin I (0.000-0.056) ng/mL Total Protein (6.4-8.2) g/dL Albumin (3.4-5.0) g/dL Globulin (2.0-3.5) g/dL Albumin/Globulin Ratio (1.3-2.8) Triglycerides (0-200) mg/dL Cholesterol (50-200) mg/dL LDL Cholesterol, Calc (60-180) mg/dL VLDL Cholesterol (5-55) mg/dL HDL Cholesterol (40-60) mg/dL Cholesterol/HDL Ratio (3.3-6.0) Reynaldo Results Last 24 Hours: Microbiology 09/30/17 12:30 Influenza Type A Antigen Screen - Final Nasopharyngeal Swab NEGATIVE INFLUENZA A VIRUS AG Influenza Type B Antigen Screen - Final NEGATIVE INFLUENZA B VIRUS AG Med Orders - Current: Current Medications Aspirin (Aspirin) 81 mg PO DAILY [facility] Last Admin: 10/01/17 09:08 Dose: 81 mg Atorvastatin Calcium (Lipitor) 40 mg PO BEDTIME [facility] Bisacodyl (Dulcolax) 10 mg RECTAL DAILY PRN PRN Reason: Constipation Last Admin: 09/30/17 16:57 Dose: 10 mg Docusate Sodium (Colace) 100 mg PO DAILY [facility] Last Admin: 10/01/17 09:08 Dose: 100 mg Enoxaparin Sodium (Lovenox) 40 mg SUBCUT Q24H [facility] Last Admin: 10/01/17 12:08 Dose: 40 mg Lisinopril (Prinivil) 10 mg PO DAILY [facility] Metoprolol Tartrate (Lopressor) 12.5 mg PO Q12H [facility] Morphine Sulfate (Morphine) 2 mg IVPUSH Q4H PRN PRN Reason: Pain Last Admin: 09/30/17 14:19 Dose: 2 mg Nitroglycerin (Nitrostat) 0.4 mg SL Q5M PRN PRN Reason: Chest Pain Last Admin: 09/30/17 12:17 Dose: 0.4 mg Ondansetron HCl (Zofran) 4 mg IVPUSH Q4H PRN PRN Reason: Nausea Pantoprazole Sodium (Protonix Iv) 40 mg IVPUSH Q24H [facility] Last Admin: 10/01/17 12:07 Dose: 40 mg Sodium Chloride (Saline Flush) 10 ml FLUSH ASDIRECTED PRN PRN Reason: Keep Vein Open Sodium Chloride (Saline Flush) 2.5 ml FLUSH ASDIRECTED PRN PRN Reason: Keep Vein Open Spironolactone (Aldactone) 12.5 mg PO DAILY [facility] Last Admin: 10/01/17 09:09 Dose: 12.5 mg Discontinued Medications Aspirin (Aspirin) 324 mg PO ONETIME ONE Stop: 09/30/17 10:58 Last Admin: 09/30/17 11:01 Dose: 324 mg Furosemide (Lasix) 40 mg IVPUSH NOW ONE Stop: 09/30/17 11:59 Last Admin: 09/30/17 12:19 Dose: 40 mg Furosemide (Lasix) 40 mg IVPUSH NOW ONE Stop: 09/30/17 16:28 Last Admin: 09/30/17 16:52 Dose: Not Given Furosemide (Lasix) 40 mg IVPUSH NOW ONE Stop: 09/30/17 18:01 Last Admin: 09/30/17 17:41 Dose: 40 mg Furosemide (Lasix) 40 mg IVPUSH NOW ONE Stop: 10/01/17 08:58 Last Admin: 10/01/17 09:16 Dose: 40 mg Furosemide (Lasix) 40 mg IVPUSH NOW ONE Stop: 10/01/17 09:36 Last Admin: 10/01/17 11:01 Dose: Not Given Magnesium Sulfate 4 gm/ Premix 100 mls @ 50 mls/hr IV ONETIME ONE Stop: 10/01/17 09:59 Last Admin: 10/01/17 09:07 Dose: 50 mls/hr Lisinopril (Prinivil) 2.5 mg PO DAILY [facility] Last Admin: 10/01/17 09:08 Dose: 2.5 mg Lisinopril (Prinivil) 10 mg PO ONETIME ONE Stop: 10/01/17 12:08 Last Admin: 10/01/17 12:35 Dose: 10 mg Metoprolol Tartrate (Lopressor) 5 mg IVPUSH Q5M [facility] Stop: 09/30/17 09:41 Last Admin: 09/30/17 10:19 Dose: 5 mg Metoprolol Tartrate (Lopressor) 12.5 mg PO ONETIME ONE Stop: 10/01/17 13:27 Last Admin: 10/01/17 13:55 Dose: 12.5 mg Potassium Chloride (Klor-Con M20) 40 meq PO ONETIME ONE Stop: 10/01/17 08:01 Last Admin: 10/01/17 09:06 Dose: 40 meq - Exam General: Alert, Oriented Neck: No JVD Lungs: Clear to Auscultation Cardiovascular: Regular Rate GI/Abdominal Exam: Normal Bowel Sounds (Female) Exam: Normal External Exam Back Exam: Normal Inspection Extremities: No Pedal Edema EKG INTERPRETATION Rhythm: Other (cLBBB) - Problem List Review Problem List Initiated/Reviewed/Updated: Yes - My Orders Last 24 Hours: My Active Orders 10/01/17 21:00 Metoprolol Tartrate [Lopressor] 12.5 mg PO Q12H - Plan Plan:: 47F new onset cardiomyopathy smoker uncontrolled HTN 1. decompensated systolic HF, now improved, conitnue aldactone 12.5, lisinopril was increased for BP to 10 daily. may consider changing lasix to 40 PO daily, will start metoprolol 12.5 BID, if tolerate will increase to 25 daily. Will discuss for angiogram as outpt. - metoprolol 12.5 BID, aldactone 12.5, lisinopril 10 - may change lasix to 40 PO daily - heart healthy diet 2. uncontrolled HTN, BP machine was given 3. HLP ASCVD 19% agree with lipitor 40 daily
[2017-10-01] MEDS: Metoprolol Tartrate 25 MG Tab PO SCH (20:19)
[2017-10-01] MEDS ORDERED: atorvaSTATin 40 MG Tab PO SCH (21:00)
[2017-10-02] MEDS: Morphine 2 MG/ML Syringe IVPUSH PRN (02:22)
[2017-10-02] MEDS ORDERED: Potassium Chloride 20 MEQ Tab.ER PO ONE ×2 (07:42→12:00)
[2017-10-02] MEDS: Spironolactone 25 MG Tab PO SCH (08:48)
[2017-10-02] MEDS: Aspirin 81 MG Tab.Chew PO SCH (08:49)
[2017-10-02] MEDS: Docusate Sodium 100 MG Cap PO SCH (08:49)
[2017-10-02] MEDS: Metoprolol Tartrate 25 MG Tab PO SCH (08:50)
[2017-10-02] MEDS ORDERED: Lisinopril 5 MG Tab PO SCH (09:00)
[2017-10-02] MEDS ORDERED: Furosemide 40 MG Tab PO SCH (09:15)
[2017-10-02] MEDS ORDERED: Metoprolol Tartrate 25 MG Tab PO ONE (10:41)
--- NOTE | 2017-10-02 11:08 | PCM.DCSUM1 ---
Discharge Summary - Hospital Course Brief History: This 47 year old female with pmh of HTN and dyslipidemia, which she is noncomplaint with medications, presented to the ED today with concerns of feeling left sided chest pain and dizziness. She reports this has been going on for about 1 week and felt she should be evaluated since it was not going away. She reports hot flashes and fevers, but no documented fever at home. No cough, palpitations or URI symptoms. She reports some nausea with epigastric pain and bloating, she reports history of GERD, but hasn't been taking Nexium in a long time. She reports no BM since Thursday. Abdomen feels full of gas, she is passing gas. No black or bloody BMs. She reports lying flat but then having to breath heavier and sit up. No noticeable weight loss or gain, "my weight fluctuates". She reports history of smoking, quit 2 weeks ago, no alcohol use and no recreational drug use. No heavy Tylenol use. In the ED, WBC 7,630, BUN 18, Cr 1.2, glucose 134, bilirubin 2.1, AST 49, ALT 124, and alkphose 167. amylase 38 and lipase 82. BNP 984 and troponin negative. EKG revealed LBBB, rate 90s. CXR revealed mild cardiomegaly with possible curly B lines. RUQ US revealed no acute finding within RUQ, cholecystectomy, small R pleural effusion not clearly characterized on CXR. She was noted to have elevated BP on arrival 180/130s. She was scow captain Lopressor 5 mg x 3 dose in ED, BP decreased to 150-160/90s. She was also given ASA 324 mg. She will be admitted for suspected CHF, chest pain and uncontrolled HTN/HTN urgency. She reports she has not seen a Dr since she was in [place] in 2016 and has not been taking her medications for a "long time". - Discharge Data Discharge Date: 10/02/17 Discharge Disposition: Home, Self-Care 01 Condition: Good - Discharge Diagnosis/Problem(s) (1) Congestive heart failure SNOMED Code(s): 28034248 ICD Code: I50.9 - HEART FAILURE, UNSPECIFIED Status: Acute Current Visit : Yes Qualifiers: Heart failure type: systolic Heart failure chronicity: acute Qualified Code(s): I50.21 - Acute systolic (congestive) heart failure (2) Hyperlipidemia SNOMED Code(s): 31929241 ICD Code: E78.5 - HYPERLIPIDEMIA, UNSPECIFIED Status: Acute Current Visit : Yes Qualifiers: Hyperlipidemia type: unspecified Qualified Code(s): E78.5 - Hyperlipidemia , unspecified (3) Uncontrolled hypertension SNOMED Code(s): 61485183 ICD Code: I10 - ESSENTIAL (PRIMARY) HYPERTENSION Status: Chronic Current Visit: Yes (4) Non compliance w medication regimen SNOMED Code(s): 346995671 ICD Code: Z91.14 - PATIENT'S OTHER NONCOMPLIANCE WITH MEDICATION REGIMEN Status: Acute Current Visit: Yes (5) Elevated liver function tests SNOMED Code(s): 933414409 ICD Code: R79.89 - OTHER SPECIFIED ABNORMAL FINDINGS OF BLOOD CHEMISTRY Status: Resolved Current Visit: Yes (6) Chest pain SNOMED Code(s): 27803087 ICD Code: R07.9 - CHEST PAIN, UNSPECIFIED Status: Resolved Current Visit : Yes Qualifiers: Chest pain type: unspecified Qualified Code(s): R07.9 - Chest pain, unspecified - Patient Summary/Data Consults: Consultations 09/30/17 14:06 Consult to Physician [CONS] Routine - Patient Instructions Diet: Heart Healthy Diet, Low Sodium Fluid Restriction: 2000 mL Activity: As Tolerated, No Strenuous Activities Showering/Bathing: May Shower Notify Provider of: Fever, Increased Pain, Swelling and Redness, Drainage, Nausea and/or Vomiting Other/Special Instructions: Report to primary care provider or Forensic Nurse if you start to feel these symtpoms;. Shortness of breath or have more difficulty breathing, swelling of your feet, ankles, hands or abdomen, feeling tired with normal activity or experiencing dizziness or fainting, trouble sleeping or waking up feeling short of breath or coughing, chest pain or pressure, weight gain of 3-5 pounds over 2-3 days, inability to take medications or follow treatment plan. - Discharge Plan Prescriptions/Med Rec: Aspirin 81 mg PO DAILY #30 tab.chew atorvaSTATin [Lipitor] 40 mg PO BEDTIME #30 tablet Furosemide [Lasix] 40 mg PO DAILY #30 tablet Lisinopril 10 mg PO DAILY #30 tablet Metoprolol Tartrate [Lopressor] 25 mg PO Q12H #60 tablet Pantoprazole Sodium [Protonix] 40 mg PO DAILY #30 tablet.dr Potassium Chloride [K-Tab ER] 20 meq PO DAILY #5 tablet.er Spironolactone [Aldactone] 12.5 mg PO DAILY #30 tablet Home Medications: Home Meds Aspirin 81 mg PO DAILY #30 tab.chew 10/02/17 [Rx] Furosemide [Lasix] 40 mg PO DAILY #30 tablet 10/02/17 [Rx] Lisinopril 10 mg PO DAILY #30 tablet 10/02/17 [Rx] Metoprolol Tartrate [Lopressor] 25 mg PO Q12H #60 tablet 10/02/17 [Rx] Pantoprazole Sodium [Protonix] 40 mg PO DAILY #30 tablet.dr 10/02/17 [Rx] Potassium Chloride [K-Tab ER] 20 meq PO DAILY #5 tablet.er 10/02/17 [Rx] Spironolactone [Aldactone] 12.5 mg PO DAILY #30 tablet 10/02/17 [Rx] atorvaSTATin [Lipitor] 40 mg PO BEDTIME #30 tablet 10/02/17 [Rx] Patient Handouts: Chest Wall Pain, [id number], Heart Failure, [id number] Referrals: Marycruz Shore MD [Physician] - Maciel Nevarez MD [Resident] - - Discharge Summary/Plan Comment DC Time >30 min.: No Discharge Summary/Plan Comment: Discharge Diagnoses: New onset systolic heart failure, LV EF 20-25% Dyslipidemia HTN, uncontrolled Hx of non-compliance with medications Negrita was admitted and work-up initiated for suspected heart failure. ECHO was obtained and revealed new onset decompensated systolic heart failure with LV EF 20-25%, severely decreased left ventricular systolic function, elevated mean left atrial pressure, mildly reduced right ventricular systolic function, right ventricular size is mildly enlarged, aortic and tricuspid valve structurally normal, mild mitral and tricuspid valve regurgitation, right ventricular systolic pressure is moderately elevated 51.6 mmHg, small circumferential pericardial effusion noted, NO evidence of cardiac tamponade, and severe biatrial dilation. She was diureses with Lasix 40 mg IV BID then Daily with nice improvement in symptoms. On day one after diureses, chest pain resolved as well as majority of dyspnea. She was also started on Lisinopril and Aldactone. BP continued to be elevated in 160/80s, Lisinopril was increased to 10 mg daily and Metoprolol tartrate was added BID. BP improved 130-140/70-80s. She was given blood pressure cuff from Dr Shore to monitor her BPs at home. ASCVD risk elevated, A1c 5.9, lipids elevated slightly and with risk Atorvastatin 40 mg daily was started. Today she is feeling much better. We continued to provide heart failure education and spent well over 20 minutes discussing diet changes, such as monitoring fluid intake to around 2 L daily, 2 gram low sodium diet and heart healthy. We discussed reasoning for each medication we have started and the importance of following her medication regimen to help improve overall prognosis. We discussed symptoms such as weight gain, increase shortness of breath or chest pain, that she should be calling PCP or Dr Shore with any of these concerns. If chest pain and/or shortness of breath continues and is severe, she should come to be evaluated in ED. I also stressed the importance of her following medication regimen and followup with providers as scheduled with her younger brother, who is how she gets to appointments. - General Info Date of Service: 10/02/17 Admission Dx/Problem (Free Text: Admission Diagnosis/Problem Uncontrolled HTN noncompliant with new onset systolic HF, decompensation. Subjective Update: Doing much better today. Was up ambulating in hallway and took shower per self. Slightly SOB with increase of activity. No further chest pain. No headaches or blurred vision. No abdominal pain. Functional Status: Reports: Pain Controlled, Tolerating Diet, Ambulating - Review of Systems HEENT: Reports: No Symptoms. Denies: Headaches, Sinus Congestion, Sore Throat Pulmonary: Reports: Shortness of Breath. Denies: Cough, Sputum Cardiovascular: Reports: No Symptoms. Denies: Chest Pain, Palpitations, Edema Gastrointestinal: Reports: No Symptoms. Denies: Abdominal Pain, Nausea, Vomiting Genitourinary: Reports: No Symptoms. Denies: Dysuria, Frequency, Burning, Pain Musculoskeletal: Reports: No Symptoms. Denies: Neck Pain Neurological: Reports: No Symptoms. Denies: Confusion Psychiatric: Reports: No Symptoms. Denies: Confusion - Patient Data Vitals - Most Recent: Last Vital Signs Temp 96.8 F 10/02/17 10:57 Pulse 89 10/02/17 10:57 Resp 18 10/02/17 10:57 BP 148/86 H 10/02/17 10:57 Pulse Ox 97 10/02/17 10:57 Weight - Most Recent: 86.455 kg I&O - Last 24 hours: Intake & Output 10/01/17 10/02/17 10/02/17 22:59 06:59 14:59 Intake Total 1770 618 Output Total 1890 300 Balance -120 318 Lab Results - Last 24 hrs: Laboratory Results - last 24 hr 10/02/17 10/02/17 Range/Units 05:00 05:00 WBC 7.04 (4.0-11.0) K/uL RBC 4.23 L (4.30-5.90) M/uL Hgb 12.9 (12.0-16.0) g/dL Hct 37.3 (36.0-46.0) % MCV 88.2 (80.0-98.0) fL MCH 30.5 (27.0-32.0) pg MCHC 34.6 (31.0-37.0) g/dL RDW Std Deviation 45.7 (28.0-62.0) fl RDW Coeff of Anu 15 (11.0-15.0) % Plt Count 293 (150-400) K/uL MPV 10.00 (7.40-12.00) fL Neut % (Auto) 44.8 L (48.0-80.0) % Lymph % (Auto) 44.9 H (16.0-40.0) % [place] % (Auto) 8.2 (0.0-15.0) % Eos % (Auto) 1.8 (0.0-7.0) % Baso % (Auto) 0.3 (0.0-1.5) % Neut # (Auto) 3.2 (1.4-5.7) K/uL Lymph # (Auto) 3.2 H (0.6-2.4) K/uL [place] # (Auto) 0.6 (0.0-0.8) K/uL Eos # (Auto) 0.1 (0.0-0.7) K/uL Baso # (Auto) 0.0 (0.0-0.1) K/uL Nucleated RBC % 0.0 /100WBC Nucleated RBCs # 0 K/uL Sodium 139 (136-145) mmol/L Potassium 3.2 L (3.5-5.1) mmol/L Chloride 103 (98-107) mmol/L Carbon Dioxide 27.2 (21.0-32.0) mmol/L BUN 24 H (7.0-18.0) mg/dL Creatinine 1.2 H (0.6-1.0) mg/dL Est Cr Clr Drug Dosing 55.31 mL/min Estimated GFR (MDRD) 58.4 ml/min Glucose 121 H (74-106) mg/dL Calcium 8.4 L (8.5-10.1) mg/dL Magnesium 1.7 (1.5-2.0) mg/dL Total Bilirubin 0.9 (0.2-1.0) mg/dL AST 23 (15-37) IU/L ALT 68 H (14-63) IU/L Alkaline Phosphatase 123 H (46-116) U/L Total Protein 6.3 L (6.4-8.2) g/dL Albumin 2.9 L (3.4-5.0) g/dL Globulin 3.4 (2.0-3.5) g/dL Albumin/Globulin Ratio 0.9 L (1.3-2.8) Med Orders - Current: Current Medications Aspirin (Aspirin) 81 mg PO DAILY [facility] Last Admin: 10/02/17 08:49 Dose: 81 mg Atorvastatin Calcium (Lipitor) 40 mg PO BEDTIME [facility] Last Admin: 10/01/17 20:18 Dose: 40 mg Bisacodyl (Dulcolax) 10 mg RECTAL DAILY PRN PRN Reason: Constipation Last Admin: 09/30/17 16:57 Dose: 10 mg Docusate Sodium (Colace) 100 mg PO DAILY [facility] Last Admin: 10/02/17 08:49 Dose: 100 mg Enoxaparin Sodium (Lovenox) 40 mg SUBCUT Q24H [facility] Last Admin: 10/01/17 12:08 Dose: 40 mg Furosemide (Lasix) 40 mg PO DAILY [facility] Last Admin: 10/02/17 10:06 Dose: 40 mg Lisinopril (Prinivil) 10 mg PO DAILY [facility] Last Admin: 10/02/17 08:51 Dose: 10 mg Metoprolol Tartrate (Lopressor) 25 mg PO Q12H [facility] Morphine Sulfate (Morphine) 2 mg IVPUSH Q4H PRN PRN Reason: Pain Last Admin: 10/02/17 02:22 Dose: 2 mg Nitroglycerin (Nitrostat) 0.4 mg SL Q5M PRN PRN Reason: Chest Pain Last Admin: 09/30/17 12:17 Dose: 0.4 mg Ondansetron HCl (Zofran) 4 mg IVPUSH Q4H PRN PRN Reason: Nausea Pantoprazole Sodium (Protonix Iv) 40 mg IVPUSH Q24H [facility] Last Admin: 10/01/17 12:07 Dose: 40 mg Potassium Chloride (Klor-Con M20) 40 meq PO ONETIME ONE Stop: 10/02/17 12:01 Sodium Chloride (Saline Flush) 10 ml FLUSH ASDIRECTED PRN PRN Reason: Keep Vein Open Sodium Chloride (Saline Flush) 2.5 ml FLUSH ASDIRECTED PRN PRN Reason: Keep Vein Open Spironolactone (Aldactone) 12.5 mg PO DAILY [facility] Last Admin: 10/02/17 08:48 Dose: 12.5 mg Discontinued Medications Aspirin (Aspirin) 324 mg PO ONETIME ONE Stop: 09/30/17 10:58 Last Admin: 09/30/17 11:01 Dose: 324 mg Furosemide (Lasix) 40 mg IVPUSH NOW ONE Stop: 09/30/17 11:59 Last Admin: 09/30/17 12:19 Dose: 40 mg Furosemide (Lasix) 40 mg IVPUSH NOW ONE Stop: 09/30/17 16:28 Last Admin: 09/30/17 16:52 Dose: Not Given Furosemide (Lasix) 40 mg IVPUSH NOW ONE Stop: 09/30/17 18:01 Last Admin: 09/30/17 17:41 Dose: 40 mg Furosemide (Lasix) 40 mg IVPUSH NOW ONE Stop: 10/01/17 08:58 Last Admin: 10/01/17 09:16 Dose: 40 mg Furosemide (Lasix) 40 mg IVPUSH NOW ONE Stop: 10/01/17 09:36 Last Admin: 10/01/17 11:01 Dose: Not Given Magnesium Sulfate 4 gm/ Premix 100 mls @ 50 mls/hr IV ONETIME ONE Stop: 10/01/17 09:59 Last Admin: 10/01/17 09:07 Dose: 50 mls/hr Lisinopril (Prinivil) 2.5 mg PO DAILY [facility] Last Admin: 10/01/17 09:08 Dose: 2.5 mg Lisinopril (Prinivil) 10 mg PO ONETIME ONE Stop: 10/01/17 12:08 Last Admin: 10/01/17 12:35 Dose: 10 mg Metoprolol Tartrate (Lopressor) 5 mg IVPUSH Q5M [facility] Stop: 09/30/17 09:41 Last Admin: 09/30/17 10:19 Dose: 5 mg Metoprolol Tartrate (Lopressor) 12.5 mg PO Q12H [facility] Last Admin: 10/02/17 08:50 Dose: 12.5 mg Metoprolol Tartrate (Lopressor) 12.5 mg PO ONETIME ONE Stop: 10/01/17 13:27 Last Admin: 10/01/17 13:55 Dose: 12.5 mg Metoprolol Tartrate (Lopressor) 12.5 mg PO ONETIME ONE Stop: 10/02/17 10:42 Potassium Chloride (Klor-Con M20) 40 meq PO ONETIME ONE Stop: 10/01/17 08:01 Last Admin: 10/01/17 09:06 Dose: 40 meq Potassium Chloride (Klor-Con M20) 40 meq PO ONETIME ONE Stop: 10/02/17 07:43 Last Admin: 10/02/17 08:16 Dose: 40 meq - Exam Quality Assessment: Reports: DVT Prophylaxis. Denies: Supplemental Oxygen General: Reports: Alert, Oriented, Cooperative, No Acute Distress Neck: Reports: Supple, No JVD Lungs: Reports: Clear to Auscultation, Normal Respiratory Effort Cardiovascular: Reports: Regular Rate, Regular Rhythm, No Murmurs GI/Abdominal Exam: Normal Bowel Sounds, Soft, Non-Tender, No Organomegaly, No Distention, No Abnormal Bruit, No Mass, Pelvis Stable Back Exam: Reports: Normal Inspection, Full Range of Motion Extremities: Normal Inspection, Normal Range of Motion, Non-Tender, No Pedal Edema, Normal Capillary Refill Skin: Reports: Warm, Dry, Intact Neurological: Reports: No New Focal Deficit Psy/Mental Status: Reports: Alert, Normal Affect, Normal Mood *Q Meaningful Use (DIS) - VTE *Q VTE Criteria *Q: - Stroke *Q Stroke Criteria *Q: - AMI *Q AMI Criteria *Q:
[2017-10-02] MEDS: Pantoprazole 40 MG Vial IVPUSH SCH (11:35)
[2017-10-02] MEDS: Enoxaparin 40 MG/0.4 ML Syringe SUBCUT SCH (11:53)
[2017-10-02] MEDS ORDERED: Metoprolol Tartrate 25 MG Tab PO SCH (21:00)
--- NOTE | 2017-10-06 12:48 | ECHO ---
EXAM DATE: 09/30/17 PATIENT'S AGE: 47 The echocardiogram report can be seen in this patient's EMR (Electronic Medical Record) in the Reports section. The report has also been scanned into PACs. DEX
== END 2017-10-02 13:30 | disposition home or self-care (01) | DRG 293 ==
LOC: MW.ED 08:51 → MW.MS 11:03 → OBSVTOIN 11:03 → MW.MS 12:31
PROVIDERS: ADMIT Internal Medicine; ATTEND Internal Medicine
DX: I11.0 Hypertensive heart disease with heart failure (principal); I50.9 Heart failure, unspecified; I50.23 Acute on chronic systolic (congestive) heart failure; R79.89 Other specified abnormal findings of blood chemistry; E78.5 Hyperlipidemia, unspecified; E66.9 Obesity, unspecified; Z87.891 Personal history of nicotine dependence; Z91.19 Patient's noncompliance with other medical treatment and regimen
CPT/HCPCS: 36415; 71046; 80053; 80074; 82150; 83690; 83880; 84484; 85025; 93005; 96374; 96376; 99285; A9270; 76705; 76705-26; 80061; 83036; 83735; 87804; 93306; 99284; C9113; J1650; J1940; J2270; J3475